=== PATIENT | male | born 1985 | race Caucasian/White ===

== ENCOUNTER 2019-07-31 00:22 | Emergency (ER) | payer SELFPAY ==
[~2019-07-31] VITALS: Ht 170.2 cm; Wt 134.3 kg
[2019-07-31 00:30] VITALS: Ht 170.2 cm; Wt 134.3 kg
[2019-07-31 02:22] LABS: BASOPHIL % 0.2 % (0-2); PLATELET COUNT 244 x10^3mcL (130-400); RED CELL DISTRIBUTION WIDTH 12.6 % (11.5-14.5)
[2019-07-31 03:07] LABS: ERYTHROCYTE SED RATE 72 mm/hr (0-15)
[2019-07-31 03:30] LABS: ALKALINE PHOSPHATASE 129 U/L (46-116); ALT/SGPT 51 U/L (16-63); AST/SGOT 31 U/L (15-37); BILIRUBIN TOTAL 0.68 mg/dL (0.20-1.00); CALCIUM 8.7 mg/dL (8.5-10.1); CARBON DIOXIDE 27.3 mmol/L (21-32); CHLORIDE SERUM 103 mmol/L (98-107); CREATININE SERUM 0.8 mg/dL (0.7-1.3); GFR1 > 60 mL/min; GLUCOSE SERUM 109 mg/dL (74-106); POTASSIUM SERUM 3.4 mmol/L (3.5-5.1); SODIUM SERUM 138 mmol/L (136-145); TOTAL PROTEIN, SERUM 7.7 g/dL (6.4-8.2)
[2019-07-31 04:32] VITALS: BP 156/88
== END 2019-07-31 04:32 | disposition home or self-care (01) ==
LOC: ED 00:22
PROVIDERS: Specialist
DX: J18.1 Lobar pneumonia, unspecified organism (principal); M54.9 Dorsalgia, unspecified
CPT/HCPCS: 36600; 87804; J0456; J0696; J1885; J7030

== ENCOUNTER 2020-05-17 21:58 | Emergency (ER) | payer OTHER ==
[~2020-05-17] VITALS: Ht 172.7 cm; Wt 137.9 kg
[2020-05-17 22:12] VITALS: Ht 172.7 cm; Wt 137.9 kg
[2020-05-17 23:17] VITALS: BP 177/126
== END 2020-05-17 22:46 | disposition home or self-care (01) ==
LOC: ED 21:58
DX: S21.232A Puncture wound without foreign body of left back wall of thorax without penetration into thoracic cavity, initial encounter (principal); I10 Essential (primary) hypertension; Y04.2XXA Assault by strike against or bumped into by another person, initial encounter; Y93.89 Activity, other specified; Y92.89 Other specified places as the place of occurrence of the external cause; Y99.8 Other external cause status
CPT/HCPCS: J3010; J7030